=== PATIENT | female | born 1960 | race Caucasian/White ===

== ENCOUNTER 2022-02-23 09:34 | Emergency (ER) | payer BC ==
[~2022-02-23] VITALS: Ht 165.1 cm; Wt 75.0 kg
[2022-02-23 10:07] VITALS: BP 144/71
[2022-02-23] MEDS ORDERED: NIRM1TAB PO (10:49)
== END 2022-02-23 10:58 | disposition home or self-care (01) ==
LOC: ER 09:35
DX: U07.1 COVID-19 (principal); R05.9 Cough, unspecified; R09.81 Nasal congestion; I10 Essential (primary) hypertension; E11.9 Type 2 diabetes mellitus without complications; Z79.899 Other long term (current) drug therapy
CPT/HCPCS: 99283